=== PATIENT | female | born 1940 | race Caucasian/White ===

== ENCOUNTER → 2018-02-18 07:50 | Outpatient (CLI) | payer MEDICARE, SELFPAY ==
[2018-02-18 09:52] LABS: AST(SGOT) 22 U/L (15-37); Alanine Aminotransfer ALT/SGPT 27 U/L (13-56); Alkaline Phosphatase 88 U/L (45-117); Bilirubin, Direct 0.15 mg/dL (0.00-0.30); Cholesterol 210 mg/dL (200); Globulin 3.4 g/dL (2.2-4.2); High Density Lipoprotein 76 mg/dL; Protein, Total 7.4 g/dL (6.4-8.2); Triglycerides 103 mg/dL; Very Low Density Lipoprotein 21 mg/dL (5-40)
--- OUTSIDE RECORDS SUMMARY | 2018-04-13 07:33 | XMS RPT_ITS | Clinical Summary ---
:1940 Author Organization [facility], [facility] Address [address] [place] [address] Phone Care Team Providers Name Role Phone MD Reggie, Luis Lee Unavailable [ ] Conditions or Problems Problem Name Problem Onset Status Entry Provider Comment Standard Annotate Code Date Date Description LONG-TERM USE 420972829 Active Mendy Mathews Long-term drug OF HIGH RISK (SNOMED 05/13 05/[address]) SHORTNESS OF 407520901 Active Belkys Spence Dyspnea BREATH (SNOMED 08/24 08/[address]) PALPITATIONS 52794951 Active Aleshia Palpitations (SNOMED 08/24 08/[address]) PAROXYSMAL 87814727 Active Aleshia Paroxysmal SUPRAVENTRICU (SNOMED 08/24 08/24 Fair RN supraventricular LAR CT) tachycardia TACHYCARDIA HYPERTENSION 76062699 Active Aleshia Hypertensive (SNOMED 08/24 08/[address]) HYPERLIPIDEMI 30627684 Active Belkys Spence Hyperlipidemia A (SNOMED 08/24 08/[address]) Medications Medication Instructions Start Stop Generic Name [facility] Provider Date Date VITAMIN B COMPLEX One tablet by B COMPLEX 65054817122 Aleshia Fair TABS mouth daily 8 VITAMINS RN VITAMIN B COMPLEX One tablet by B COMPLEX 87639646859 [place] S TABS mouth daily KYREE Paredes MD ASPIRIN 81 MG One tablet by ASPIRIN 52603637797 Aleshia Fair TABS mouth daily 8 RN MULTIVITAMINS One tablet by MULTIPLE 05276049756 Aleshia Fair TABS mouth daily 8 VITAMIN RN CALCIUM One tablet by CALCIUM 20057598975 Mendy M CARBONATE-VITAMIN mouth twice 5 CARBONATE-VIT Matthews D 600-200 MG-UNIT daily SMITH D CAPS CLOBETASOL Apply topically CLOBETASOL 80236870673 Mendy M PROPIONATE 0.05 % as directed 5 PROPIONATE Matthews CREA ASPIRIN EC 81 MG One tablet by ASPIRIN 74240294268 Harumi Y TBEC mouth daily 8 DeFinis Medications Administered No information available. Allergies, Adverse Reactions, Alerts Allergy Name Reaction Description Start Date Severity Status Provider NKA Mild Active Belkys Samano RN Results Date Name Value Unit Range Flag Description Office Visit MEDS REVIEW Done Documentation of current medications (procedure) SMOK STATUS never smoker Tobacco use [facility] Lab Report: LIVER ZZ-GE-unk 79 U/L 45-117 N GE use only - for [employer] import when terms are not otherwise specified Lab Report: Liver Profile BILI DIRECT 0.15 mg/dL 0.00-0.30 bilirubin, serum, direct BILI TOTAL 0.60 mg/dL 0.20-1.00 bilirubin, serum, total SGPT (ALT) 22 U/L 12-78 alanine aminotransferase (SGPT), serum ALK PHOS 78 U/L 45-117 alkaline phosphatase, serum SGOT (AST) 17 U/L 15-37 aspartate aminotransferase (SGOT), serum GLOBULIN TOT 3.2 g/dL 2.2-4.2 globulins, serum, total ALBUMIN 4.0 g/dL 3.4-5.0 albumin, serum PROTEIN, TOT 7.2 g/dL 6.4-8.2 protein, total, serum Lab Report: Lipid Profile VLDL 21 mg/dL 5-40 very low density lipoproteins LDL 100 mg/dL 0-130 Cholesterol in LDL [Mass/volume] in Serum or Plasma HDL 79 mg/dL Cholesterol in HDL [Mass/volume] in Serum or Plasma TRIGLYCRDES 107 mg/dL Triglyceride [Mass/volume] in Serum or Plasma CHOLESTEROL 200 mg/dL 200 Cholesterol [Mass/volume] in Serum or Plasma Plan of Care Type Date Detail Pending order *Hepatic Function Panel Pending order *Lipid Profile CC PCP Pending order *Hepatic Function Panel Pending order *Lipid Profile CC PCP Pending order *Hepatic Function Panel Pending order *Lipid Profile CC PCP Pending order *Hepatic Function Panel Pending order *Lipid Profile CC PCP Pending order [employer] Pending order Follow Up Appt 6 months Pending order *Lipid Profile Pending order *Hepatic Function Panel Patient education HYPERLIPIDEMIA, HYPERTENSION, HEART%20HEALTHY%20DIET Procedures Code Procedure Name Date Entry Date 0788-1 *Hepatic Function Panel 88575-0 *Lipid Profile CC PCP 0788-1 *Hepatic Function Panel 91115-1 *Lipid Profile CC PCP 0788-1 *Hepatic Function Panel 50224-2 *Lipid Profile CC PCP 0788-1 *Hepatic Function Panel 07711-4 *Lipid Profile CC PCP F/U [employer] FUA 6 months Follow Up Appt 6 months 58463-1 *Lipid Profile 0788-1 *Hepatic Function Panel Vital Signs Date Name Value Unit Description BMI (Body Mass Index) 24.38 kg/m2 Body Mass Index [Ratio] BP Diastolic 70 mm[Hg] blood pressure, diastolic - 8462-4 BP Systolic 140 mm[Hg] blood pressure, systolic - 8480-6 Heart Rate 80 /min pulse rate E&M - 8867-4 Height 61.5 [in_us] height E&M - 8302-2 Respiratory Rate 20 /min respiratory rate E&M - 9279-1 Weight Measured 130.7 [lb_av] weight E&M - 3141-9
--- OUTSIDE RECORDS SUMMARY | 2018-04-13 07:33 | XMS RPT_ITS | Clinical Summary ---
:1940 Author Organization [facility], [facility] Address [address] [place] [address] Phone Care Team Providers Name Role Phone Dereck Pereira Usha Mirna Unavailable Conditions or Problems Problem Name Problem Onset Status Entry Provider Comment Standard Annotate Code Date Date Description LONG-TERM USE 645197076 Active Mendy Mathews Long-term drug OF HIGH RISK (SNOMED 05/13 05/[address]) SHORTNESS OF 349534456 Active Belkys Spence Dyspnea BREATH (SNOMED 08/24 08/[address]) PALPITATIONS 32733539 Active Aleshia Palpitations (SNOMED 08/24 08/[address]) PAROXYSMAL 73510667 Active Belkys Spence Paroxysmal SUPRAVENTRICU (SNOMED 08/24 08/24 Fair RN supraventricular LAR CT) tachycardia TACHYCARDIA HYPERTENSION 91278172 Active Belkys Spence Hypertensive (SNOMED 08/24 08/[address]) HYPERLIPIDEMI 06940798 Active Belkys Spence Hyperlipidemia A (SNOMED 08/24 08/[address]) Medications Medication Instructions Start Stop Generic Name ND Provider Date Date VITAMIN B COMPLEX One tablet by B COMPLEX 30999330924 Aleshia Fair TABS mouth daily 8 VITAMINS RN VITAMIN B COMPLEX One tablet by B COMPLEX 69656654814 Luis S TABS mouth daily KYREE Paredes MD ASPIRIN 81 MG One tablet by ASPIRIN 31838293745 Aleshia Fair TABS mouth daily 8 RN MULTIVITAMINS One tablet by MULTIPLE 82017758486 Aleshia Fair TABS mouth daily 8 VITAMIN RN CALCIUM One tablet by CALCIUM 62855897331 Mendy Mathews CARBONATE-VITAMIN mouth twice 5 CARBONATE-VIT Matthews D 600-200 MG-UNIT daily SMITH D CAPS CLOBETASOL Apply topically CLOBETASOL 33918340122 Mendy M PROPIONATE 0.05 % as directed 5 PROPIONATE Byron CREKeisha ASPIRIN EC 81 MG One tablet by ASPIRIN 08325777362 Harumi Y TBEC mouth daily 8 DeFinis Medications Administered No information available. 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 Follow Up Appt 6 months Pending order *Lipid Profile Pending order *Hepatic Function Panel Patient education HYPERLIPIDEMIA, HYPERTENSION, HEART%20HEALTHY%20DIET Procedures Code Procedure Name Date Entry Date 0788-1 *Hepatic Function Panel 33090-5 *Lipid Profile CC PCP 0788-1 *Hepatic Function Panel 08866-4 *Lipid Profile CC PCP 0788-1 *Hepatic Function Panel 96241-7 *Lipid Profile CC PCP 0788-1 *Hepatic Function Panel 67345-9 *Lipid Profile CC PCP 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
--- OUTSIDE RECORDS SUMMARY | 2018-04-13 07:33 | XMS RPT_ITS ---
:1940 Author Organization [facility] Care Team Providers Name Role Phone BRISAPRIMITIVOGILBERT Referring Unavailable Luis Paredes Attending Unavailable Luis Paredes Referring Unavailable Reva Thomas Primary Care Unavailable PROBLEMS PROBLEMS DATE TYPE CONDITION / CODE ATTENDING STATUS SOURCE 08/07/2017 Active Encounter for NA Active [facility] screening [place] mammogram for Repository malignant neoplasm of breast / Z12.31(ICD-10) PROCEDURES PROCEDURES No Procedure Records FoundRESULTS RESULTS LIVER PROFILE Collected: 02/18/2018 Status: F Source: [place] 7:59 AM [facility] REPOSITORY Order Comment: Order Date: 02/16/17 Order Info: 0788-1 - *Hepatic Function Panel Order Info: 11311-7 - *Lipid Profile CC PCP Comments: 12 hours fasting, may have water. TYPE CODE TESTS RESULT OUT OF RANGE REFERENCE UNITS LAB L501.1500 6.4-8.2 g/dL Normal T PROT 7.4 LAB L501.1800 3.2-5.0 g/dL Normal ALB 4.0 LAB L501.1950 2.2-4.2 g/dL Normal GLOB 3.4 LAB L501.4100 15-37 U/L Normal AST 22 LAB L501.4305 45-117 U/L Normal ALK P 88 LAB L501.4405 13-56 U/L Normal ALT 27 LAB L501.4600 0.20-1.00 mg/dL Normal T BILI 0.60 LAB L501.4700 0.00-0.30 mg/dL Normal D BILI 0.15 Performed By: #### L500.3400 #### [place] [facility] [place], [address] LIPID PROFILE Collected: 02/18/2018 Status: F Source: [place] 7:59 AM [facility] REPOSITORY Order Comment: Order Date: 02/16/17 Order Info: 0788-1 - *Hepatic Function Panel Order Info: 46599-0 - *Lipid Profile CC PCP Comments: 12 hours fasting, may have water. TYPE CODE TESTS RESULT OUT OF RANGE REFERENCE UNITS LAB L501.4900 200 mg/dL High CHOL 210 Result Comment: <200 mg/dL Desirable 200-240 mg/dL Borderline >240 mg/dL High Risk LAB L501.5000 mg/dL Normal TRIG 103 Result Comment: The drugs N-Acetylcysteine and Metamizole may falsely depress this assay. Serum Triglycerides Reference Interval Normal <150 mg/dL Borderline high 150 - 199 mg/dL High 200 - 499 mg/dL Very High > or = 500 mg/dL LAB L501.6400 mg/dL Normal HDL 76 Result Comment: The drugs N-Acetylcysteine and Metamizole may falsely depress this assay. Reference Range HDL <40 mg/dL Low HDL Cholesterol HDL >or= 60 mg/dL High HDL Cholesterol LAB L501.6500 0-130 mg/dL Normal LDL 113 LAB L501.6600 5-40 mg/dL Normal VLDL 21 Performed By: #### L500.4100 #### [facility] [address] [place], [address] CNCO Observed: 08/07/2017 Status: COMPLETED Source: [place] 3:[address] [facility] REPOSITORY HNO ID: [id number] Author: Mammography Coordinator Service: (none) Author Type: Physician Type: Letter Filed: 08/08/2017 11:32 PM Note Text: August 07, 2017 PID: [id number] Esthela Guillory [address] [place] [address] Dear Ms. Guillory, We are pleased to inform you that the results of your recent breast imaging exam on 08/07/2017 are normal. Early detection of cancer is very important. We also understand recommendations regarding breast cancer screening are controversial. Please discuss with your primary care provider which strategy is best for you and whether a mammogram is right for you. Your imaging studies and report will be kept on file at [facility] as part of your permanent medical record and are available for your continuing care. Thank you for allowing us to help in meeting your health care needs. Sincerely, Dr. Griggs Interpreting Radiologist [facility] (Normal over 40) [facility] SCREENING Observed: 08/07/2017 Status: F Source: [place] 7:[address] [facility] REPOSITORY * * *Final Report* * * DATE OF EXAM: Aug 07 2017 7:36AM WOW 0581 - [facility] SCREENING / PROCEDURE REASON: Encounter for screening mammogram for malignant neoplasm of breast * * * * Physician Interpretation * * * * RESULT: #[id number] - SPRNIG SCREENING BILATERAL DIGITAL SCREENING MAMMOGRAM WITH CAD: 08/07/2017 HISTORY: Encounter For Screening Mammogram For Malignant Neoplasm Of Breast /Screening Mammogram - patient reports NO breast symptoms /Priors available for comparison. RESULT: TECHNIQUE: The study was acquired using full field digital technology and interpreted from soft copy. Current study was also evaluated with a Computer Aided Detection (CAD). Comparison is made to exams dated: 06/23/2016 mammogram, 05/31/2015 mammogram, 05/25/2014 mammogram, and 04/24/2013 mammogram - [facility]. There are scattered fibroglandular elements in both breasts. No significant masses, calcifications, or other findings are seen in either breast. There has been no significant interval change. IMPRESSION: NEGATIVE There is no mammographic evidence of malignancy.A 1 year screening mammogram is recommended. Karime Griggs M.D., jr/taniya:08/07/2017 15:17:43 Purchaser: Mary Ellen BARRAGAN(Jm)(Reid), [facility] letter sent: Normal over 40 Mammogram BI-RADS: 1 Negative Ingot Buggy Operator: Taniya Transcribe Date/Time: Aug 07 2017 7:15A Dictated by: KARIME GRIGGS MD This examination was interpreted and the report reviewed and electronically signed by: KARIME GRIGGS MD on Aug 07 2017 3:17PM EST [id number] ALLERGIES ALLERGIES DATE TYPE / CODE NAME / CODE REACTION SEVERITY SOURCE 03/07/2016 DRUG/[id number] INFLUENZA INTOLERANCE [facility] 003(SNOMED VACCINE TR-S [address] [place] [address]) (PF) Repository ENCOUNTERS ENCOUNTERS ADMIT/DISCHARGE ACCOUNT ADMITTING ENCOUNTER LOCATION SOURCE NUMBER CLASS 02/18/2018 [id number] Ambulatory [facility] ing:LAB Repository 08/07/2017/08/08/19 [id number] Ambulatory [address] Repository PAYERS PAYERS ENCOUNTER GUARANTOR PAYER SUBSCRIBER SOURCE 02/18/2018 ESTHELA A Primary ESTHELA A Tiroanirudh [id number] [place] Insurance:JACQUELINE HIGGINSB: [facility] Eber GOODMAN Number: [id number] [address]Jtb: [id number] Repository Date:[id number]) [id number] BREA TORRES [address]ZP: 02/18/2018 Secondary NOT GIVENUNK Tiro Insurance:SELF PAY [facility] Number: Effective Repository Date:2018-02-18
== END ==
PROVIDERS: Family Provider Internal Medicine; PCP Internal Medicine; Referring Provider Internal Medicine Cardiovascular Disease; Visit Provider Internal Medicine Cardiovascular Disease
DX: E78.5 Hyperlipidemia, unspecified (principal); Z79.899 Other long term (current) drug therapy
CPT/HCPCS: 36415; 80061; 80076